=== PATIENT | male | born 1990 | race Caucasian/White ===

== ENCOUNTER 2019-08-26 13:08 | Emergency (ER) | payer MEDICAID ==
[~2019-08-26] VITALS: Ht 175.3 cm; Wt 98.4 kg
[2019-08-26 13:36] VITALS: Ht 175.3 cm; Wt 98.4 kg
[2019-08-26 15:54] VITALS: BP 130/72
== END 2019-08-26 15:54 | disposition home or self-care (01) ==
LOC: ED 13:08
DX: M79.642 Pain in left hand (principal); J45.909 Unspecified asthma, uncomplicated